=== PATIENT | female | born 1950 | race Caucasian/White ===

== ENCOUNTER 2019-01-11 09:32 | Day surgery (SDC) | payer BC ==
[~2019-01-11 09:32] MED LIST: BESIFLOXACIN HCL 0.6% OPH SUSP 5 ML BOTTLE OD PRN; CYCLOPENTOLATE 0.2%/PHENYLEPHRINE 1% OPH SOLN 2 ML OD PRN; DORZOLAMIDE HCL 2%/TIMOLOL MALEAT 0.5% OPH SOLN 10 ML OD PRN; KETOROLAC TROMETHAMINE 0.45% 4 DROP/0.4 ML DROPERETTE OD PRN; TETRACAINE HCL 0.5% OPH SOLN 4 ML OD PRN; TROPICAMIDE 1% OPH SOLN 3 ML OD PRN
[2019-01-11] MEDS ORDERED: MIDAZOLAM 2 MG/2 ML INJ ONE (10:43)
[2019-01-11] MEDS ORDERED: FENTANYL CITRATE INJ/PF 100 MCG/2 ML AMPUL ONE (10:43)
[2019-01-11] MEDS: TROPICAMIDE 1% OPH SOLN 3 ML OD PRN ×3 (10:47→11:07)
[2019-01-11] MEDS: TETRACAINE HCL 0.5% OPH SOLN 4 ML OD PRN ×4 (10:47→11:15)
[2019-01-11] MEDS: BESIFLOXACIN HCL 0.6% OPH SUSP 5 ML BOTTLE OD PRN ×4 (10:47→11:40)
[2019-01-11] MEDS: CYCLOPENTOLATE 0.2%/PHENYLEPHRINE 1% OPH SOLN 2 ML OD PRN ×3 (10:47→11:07)
[2019-01-11] MEDS: CHONDR SU A NA/HYALUR INTRAOC KIT (SURGICARE) ONE ×2 (11:28)
[2019-01-11] MEDS: EPINEPHRINE INJ/PF 1 MG/1 ML AMPULE ONE ×2 (11:28)
[2019-01-11] MEDS: LIDOCAINE 1%/PHENYLEPHRINE 1.5% 1 ML VIAL ONE ×2 (11:28)
[2019-01-11] MEDS: DORZOLAMIDE HCL 2%/TIMOLOL MALEAT 0.5% OPH SOLN 10 ML OD PRN ×2 (11:40)
--- NOTE | 2019-01-11 17:44 | [facility] DISCHARGE SUMMARY E ---
[facility] Discharge Summary NAME: KAJAL FORTUNE AGE: 68Y ADMITTED: 01/11/2019 DISCHARGED: The patient is a 68-year-old female who underwent cataract extraction with toric IOL of the right eye. DIAGNOSIS: Cataract, right eye. She underwent surgery because she was having difficulty seeing at night secondary to glare from headlights. She should be on a regular diet. No bending at the waist and no heavy lifting. She should use his moxifloxacin, Prolensa, and Pred Forte at 3:00 p.m. and 8:00 p.m. and sleep with a rigid shield. I will see her for her 1-day postop tomorrow. DICTATING PHYSICIAN: KAITLYN CHRISTIANSON M.D. [id number] PHY#: [id number] ID: [id number] JOB#: [id number] ACCT: [id number] cc:KAITLYN CHRISTIANSON M.D. >
--- NOTE | 2019-01-11 17:44 | [facility] OPERATIVE REPORT E ---
[facility] NAME: KAJAL FORTUNE AGE: 68Y DATE OF SURGERY: 01/11/2019 ROOM: PREOPERATIVE DIAGNOSIS: CATARACT RIGHT EYE. POSTOPERATIVE DIAGNOSIS: CATARACT RIGHT EYE. OPERATION: Cataract extraction with intraocular lens implant of the right eye with a toric multifocal lens. SURGEON: KAITLYN CHRISTIANSON M.D. ANESTHESIA: MAC COMPLICATIONS: None. ESTIMATED BLOOD LOSS: None. PROCEDURE: After appropriate consent was obtained and calculations made, the patient was brought back to the operating room where the patient was prepped and draped in sterile fashion. A lid speculum was placed and attention was directed to a paracentesis where a paracentesis blade made a small incision. Viscoelastic was then used to inflate the anterior chamber. Next a 2.4 mm incision was made with the paracentesis blade. A continuous capsulorhexis forceps of approximately 5 mm was done using a cystitome and capsulorhexis forceps. Hydrodissection was carried out to make the lens freely mobile and then a divide and conquer technique was used to remove the lens with a CDE of approximately 6.29. Following this, the remaining cortical material was removed with irrigation/aspiration. After this the patient was then again marked. The marking procedure started in the preoperative holding area where 180 and 0 was marked with a marker. Now that the patient was in the operating room a 360-degree marker was used to tee the axis at approximately 110 degrees and a toric lens of 14.5 diopters [id number] was injected into the bag after filling with viscoelastic and rotating to 105 degrees. The I/A was used to remove the viscoelastic material and the toric lens appeared to be appropriately aligned. Besivance and cosopt were instilled in the eye. The patient returned to postoperative recovery in stable condition. DICTATING PHYSICIAN: KAITLYN CHRISTIANSON M.D. [id number] PHY#: [id number] ID: [id number] JOB#: [id number] ACCT: [id number] cc:KAITLYN CHRISTIANSON M.D. > MTDD
== END 2019-01-11 12:20 | disposition home or self-care (01) ==
LOC: SC 09:32
PROVIDERS: ATTEND Internal Medicine
PROC: 08RJ3JZ Replacement of Right Lens with Synthetic Substitute, Percutaneous Approach (ICD-10-PCS; principal; 2019-01-11 10:45)
DX: H25.811 Combined forms of age-related cataract, right eye (principal); H53.022 Refractive amblyopia, left eye; K21.9 Gastro-esophageal reflux disease without esophagitis; E78.00 Pure hypercholesterolemia, unspecified; E11.9 Type 2 diabetes mellitus without complications
CPT/HCPCS: 66983; 00142; V2787; J2250; J3490 ×2; J0171; J3010; J2370; 142

== ENCOUNTER 2019-02-15 08:21 | Day surgery (SDC) | payer BC ==
[~2019-02-15 08:21] MED LIST changes: -BESIFLOXACIN HCL 0.6% OPH SUSP 5 ML BOTTLE OD PRN; -CYCLOPENTOLATE 0.2%/PHENYLEPHRINE 1% OPH SOLN 2 ML OD PRN; -DORZOLAMIDE HCL 2%/TIMOLOL MALEAT 0.5% OPH SOLN 10 ML OD PRN; -KETOROLAC TROMETHAMINE 0.45% 4 DROP/0.4 ML DROPERETTE OD PRN; +KETOROLAC TROMETHAMINE 0.45% 4 DROP/0.4 ML DROPERETTE OS PRN; -TETRACAINE HCL 0.5% OPH SOLN 4 ML OD PRN; -TROPICAMIDE 1% OPH SOLN 3 ML OD PRN
[2019-02-15] MEDS: CYCLOPENTOLATE 0.2%/PHENYLEPHRINE 1% OPH SOLN 2 ML OS PRN ×3 (09:06→09:34)
[2019-02-15] MEDS: TROPICAMIDE 1% OPH SOLN 3 ML OS PRN ×3 (09:06→09:34)
[2019-02-15] MEDS: BESIFLOXACIN HCL 0.6% OPH SUSP 5 ML BOTTLE OS PRN ×4 (09:07→09:59)
[2019-02-15] MEDS: TETRACAINE HCL 0.5% OPH SOLN 4 ML OS PRN ×4 (09:08→09:41)
[2019-02-15] MEDS ORDERED: MIDAZOLAM 2 MG/2 ML INJ ONE (09:48)
[2019-02-15] MEDS: EPINEPHRINE INJ/PF 1 MG/1 ML AMPULE ONE ×2 (09:50)
[2019-02-15] MEDS: CHONDR SU A NA/HYALUR INTRAOC KIT (SURGICARE) ONE ×2 (09:50)
[2019-02-15] MEDS: LIDOCAINE 1%/PHENYLEPHRINE 1.5% 1 ML VIAL ONE ×2 (09:50)
[2019-02-15] MEDS: DORZOLAMIDE HCL 2%/TIMOLOL MALEAT 0.5% OPH SOLN 10 ML OS PRN ×2 (09:59)
--- NOTE | 2019-02-15 22:05 | [facility] OPERATIVE REPORT E ---
[facility] Operative Report NAME: KAJAL FORTUNE AGE: 68Y DATE OF SURGERY: 02/15/2019 ROOM: PREOPERATIVE DIAGNOSIS: CATARACT, LEFT EYE. POSTOPERATIVE DIAGNOSIS: CATARACT, LEFT EYE. OPERATION: Cataract extraction with insertion of an IOL of the left eye. SURGEON: KAITLYN CHRISTIANSON M.D. ANESTHESIA: Topical. PROCEDURE: After obtaining appropriate consent, the patient's left eye was prepped and draped in sterile fashion as well as the surgeon in a sterile manner and cataract surgery was started. First a paracentesis blade was used to make a side-port incision. Viscoelastic was used to inflate the anterior chamber. Next a 2.4 mm incision was made with a 2.4 mm blade, clear corneal temporally. A continuous capsulorrhexis was made using a cystotome and Utrata forceps. Following this hydrodissection was carried out to make the lens fully loose and mobile and it was rotated 90 degrees. Following this, a orjape-stx-vyssube technique was used to phacoemulsify the lens with a CDE of 6.45. The remaining cortex was removed with irrigation/aspiration. Provisc was instilled into the capsular bag to inflate the bag. A SN60WF, 17.0 diopter lens was placed. The remaining viscoelastic material was removed with irrigation/aspiration. Following this, the incision was found to be watertight. Besivance was instilled into the eye and a protective shield was placed over the eye. The patient returned to the postoperative recovery in stable condition. DICTATING PHYSICIAN: KAITLYN CHRISTIANSON M.D. [id number] PHY#: [id number] ID: [id number] JOB#: [id number] ACCT: [id number] cc:KAITLYN CHRISTIANSON M.D. >
--- NOTE | 2019-02-15 22:05 | [facility] DISCHARGE SUMMARY E ---
[facility] Discharge Summary NAME: KAJAL FORTUNE AGE: 68Y ADMITTED: 02/15/2019 DISCHARGED: 02/15/2019 HOSPITAL COURSE: This is a 68-year-old patient who underwent cataract extraction of the left eye. DIAGNOSIS: CATARACT, LEFT EYE. She underwent surgery because she was having difficulty with glare, with nighttime driving. DISCHARGE INSTRUCTIONS: She should be on a regular diet. No bending at her waist, no heavy lifting. She should use her moxifloxacin, Prolensa, and Predforte at 3 p.m. and 8 p.m. and sleep with a rigid shield. I will see her for her 1 day postoperative tomorrow. DICTATING PHYSICIAN: KAITLYN CHRISTIANSON M.D. [id number] PHY#: [id number] ID: [id number] JOB#: [id number] ACCT: [id number] cc:KAITLYN CHRISTIANSON M.D. >
== END 2019-02-15 10:39 | disposition home or self-care (01) ==
LOC: SC 08:21
PROVIDERS: ATTEND Internal Medicine
DX: H25.812 Combined forms of age-related cataract, left eye (principal); Z96.1 Presence of intraocular lens; E11.9 Type 2 diabetes mellitus without complications; K21.9 Gastro-esophageal reflux disease without esophagitis; Z79.899 Other long term (current) drug therapy; Z79.84 Long term (current) use of oral hypoglycemic drugs; Z79.82 Long term (current) use of aspirin
CPT/HCPCS: 66984; 82962; J2250; J3490 ×2; J0171; J2370; 142; V2632